=== PATIENT | male | born 1995 | race Two or more races ===

== ENCOUNTER 2017-05-30 21:46 | Emergency (ER) | payer OTHER ==
[~2017-05-30] VITALS: Ht 165.1 cm; Wt 62.0 kg
[2017-05-30] MEDS ORDERED: LORazepam 1MG TABLET PO ONE (23:30)
[2017-05-30] MEDS ORDERED: LORazepam 1MG TABLET ONE (23:32)
[2017-05-30 23:35] VITALS: BP 110/65
== END 2017-05-31 00:04 | disposition home or self-care (01) ==
LOC: ED 23:59
DX: F41.0 Panic disorder [episodic paroxysmal anxiety] (principal)
CPT/HCPCS: 93005; 99284